=== PATIENT | female | born 1975 | race African-American/Black ===

== ENCOUNTER → 2018-06-13 | Outpatient (CLI) | payer OTHER ==
[~2018-06-13] MED LIST: FLEXERIL PO; FLUVOXAMINE MA100 MG PO; NABUMETONE 500500 M1 PO; NAPROSYN500 MG PO; NORCO 5-325 TA1 EACH PO; POTASSIUM20 PO; PREDNISONE 10 M10 MG PO; TRAMADOL 50 MG50 MG PO
== END ==
LOC: RAD 09:13
DX: Z12.31 Encounter for screening mammogram for malignant neoplasm of breast (principal)

== ENCOUNTER → 2018-06-14 | Outpatient (CLI) | payer OTHER | LOC: RAD 08:43 | DX: M79.672 Pain in left foot (principal) ==

== ENCOUNTER → 2019-06-19 | Outpatient (CLI) | payer OTHER | LOC: BC 08:45 | DX: Z12.31 Encounter for screening mammogram for malignant neoplasm of breast (principal) ==

== ENCOUNTER → 2020-07-23 | Outpatient (CLI) | payer OTHER | LOC: RAD 09:36 | PROVIDERS: ATTEND Internal Medicine | DX: Z12.31 Encounter for screening mammogram for malignant neoplasm of breast (principal) ==

== ENCOUNTER → 2021-08-18 | Outpatient (CLI) | payer OTHER | LOC: RAD 11:51 | PROVIDERS: ATTEND Internal Medicine | DX: Z12.31 Encounter for screening mammogram for malignant neoplasm of breast (principal); N64.89 Other specified disorders of breast ==